=== PATIENT | female | born 1955 | race Caucasian/White ===

== ENCOUNTER 2022-08-31 09:35 | Inpatient (IN) | payer MEDICARE, SELFPAY ==
[2022-08-31] VITALS (13 sets, daily range): BP systolic 88–116; BP diastolic 65–92; PULSE 73–103; RESP 16–20; TEMP 36.4–36.6; O2SAT 93–98; BMI 47.9; BMI 38.0
--- NOTE | 2022-08-31 09:46 | ECG_ITS ---
[facility] Test Date: 2022-08-31 Pat Name: PRICILA GURROLA Department: Room: - Gender: Female Gum Cook: : 1955 Requested By: ELIANA BEJARANO Order Number: [id number] Reading MD: ABDIRAHMAN MARTINEZ Measurements Intervals [place] Rate: 97 P: 9 IL: 200 QRS: 132 QRSD: 88 T: 8 QT: 348 QTc: 402 Interpretive Statements 1100 Sinus rhythm 5120 Possible right ventricular hypertrophy 9130 borderline ECG No previous ECG available for comparison Electronically Signed On 09-02-2022 6:35:31 EDT by ABDIRAHMAN MARTINEZ
--- NOTE | 2022-08-31 09:46 | XR_ITS ---
[address] [address] Patient Name: PRICILA GURROLA MRN: [id number] date: 1955 Sex: F Assigned Patient Location: ER Current Patient Location: ED.MAIN Accession/Order Number: [id number] Exam Date: 08/31/2022 10:15 Report Date: 08/31/2022 11:13 At the request of: KATIE YOO Procedure: XR chest 1V EXAM: XR chest 1V INDICATION: chest pain. COMPARISON: Chest radiograph 01/09/2022 TECHNIQUE: Single frontal view of the chest FINDINGS: Stable enlargement of the cardiac silhouette. No acute infiltrative process. No pleural effusion or pneumothorax. No acute osseous abnormality. XR/XR chest 1V IMPRESSION: No acute cardiopulmonary process. Electronically authenticated by: CARRIE POSEY Date: 08/31/2022 11:13
[2022-08-31 10:15] LABS: Basophils Percent Auto 0.7 % (0.2-2.0); Eosinophils Percent Auto 0.5 % (0.9-7.0); Hematocrit 45.7 % (36.0-48.0); Hemoglobin 14.7 g/dL (12.0-16.0); Immature Granulocytes Abs Auto 0.02 10^3/uL (0.00-0.03); Immature Granulocytes Pct Auto 0.4 % (0.0-0.5); Lymphocytes Absolute Auto 0.7 10^3/uL (1.2-3.8); Lymphocytes Percent Auto 12.7 % (20.5-60.0); Mean Corpuscular HGB Conc 32.2 g/dL (29.9-35.2); Mean Corpuscular Hemoglobin 26.1 pg (26.7-34.0); Mean Corpuscular Volume 81.2 fL (81.0-99.0); Mean Platelet Volume 11.3 fL (9.5-13.5); Monocytes Absolute Auto 0.6 10^3/uL (0.3-0.8); Monocytes Percent Auto 10.4 % (1.7-12.0); Neutrophils Absolute Auto 4.2 10^3/uL (1.4-6.5); Neutrophils Percent Auto 75.3 % (43.0-75.0); Platelet Count 216 10^3/uL (150-450); Red Blood Count 5.63 10^6/uL (4.20-5.40); Red Cell Distribution Width 21.7 % (11.0-15.0); White Blood Count 5.6 10^3/uL (4.0-11.0)
--- NOTE | 2022-08-31 10:19 | PC.NURSE ---
started by EMS
[2022-08-31 10:30] LABS: INR 1.26; Partial Thromboplastin Time 28.4 sec (22.3-36.2); Prothrombin Time 13.2 sec (9.0-11.6)
[2022-08-31 10:35] LABS: Lactate/Lactic Acid 2.3 mmol/L (0.4-2.0)
[2022-08-31 10:38] LABS: Alanine Aminotransferase 26 U/L (14-59); Albumin Globulin Ratio 0.8; Albumin Level 2.9 g/dL (3.4-5.0); Alkaline Phosphatase 83 U/L (46-116); Anion Gap 12.1; Aspartate Amino Transferase 44 U/L (15-37); BUN Creatinine Ratio 13.3; Calcium 8.1 mg/dL (8.5-10.1); Carbon Dioxide 29.8 mmol/L (21.0-32.0); Chloride 102 mmol/L (98-107); Estimated GFR (African America >60 (>=60); Estimated GFR (Non-African Ame 52 (>=60); Globulin 3.7 g/dL; Glucose 104 mg/dL (74-106); Sodium 141 mmol/L (136-145); Total Protein 6.6 g/dL (6.4-8.2); Troponin I High Sensitivity 31.8 pg/mL (4.0-51.3)
[2022-08-31 10:50] LABS: Potassium 2.9 mmol/L (3.5-5.1)
[2022-08-31] MEDS: POTASSIUM BICARBONATE/CIT 25 MEQ TABLET EFF 50 MEQ PO (11:30)
[2022-08-31] MEDS: POTASSIUM CHLORIDE IN 0.9%NACL 1,000 ML 250 MEQ IV (11:31)
--- NOTE | 2022-08-31 12:06 | ED_ITS ---
HPI - General Adult General Chief complaint: Weakness Stated complaint: WEAKNESS Time Seen by Provider: 08/31/22 11:19 Limitations: no limitations History of Present Illness HPI narrative: Patient is a 67-year-old female who is presenting to the Emergency Room from home secondary to generalized weakness. Patient was a home by herself. Patient was in the shower this morning, sitting on a shower chair. Patient cannot get herself off the shower Chair secondary to weakness. Patient has no headache. No chest pain or shortness of breath. Patient is morbidly obese. Patient states she been having more swelling in her lower extremities for the past 2 months. Rosie ent is not eating and drinking as much as she normally does home. Patient's daughter and son at bedside. Patient's daughter is at bedside as a good source of history. Patient has not been eating or drinking as much. Patient has no nausea, vomiting, diarrhea, is not complaining of any urinary complaints. I asked patient if she is depressed or losing the will to live, because she is becoming so deconditioned at home. Patient adamantly states that she's not depressed, she is not suicidal, she is frustrated because the weakness is progressing. Patient has not talked to Dr. Frankel in the past 1-2 months about this progressing weakness. Patient says that she cannot get to his office because she so we, she knows that she can do teleconference doctor's appointments and she has not done that. There has been physical therapy and occupational therapy coming to the home, but the participation from the patient is not been good, Per daughter, and that therapy is not helping and she is progressively getting more weak. . All systems are negative except as noted/marked. All systems reviewed and otherwise negative. . Nurses note and vital signs reviewed and patient is not hypoxic. General: The patient appears well and in no apparent distress. Patient is resting comfortably on cart. Patient is not toxic, lethargic, or listless Skin: Warm, dry, no pallor noted. There is no rash noted. No petechiae, purpura. Head: Normocephalic, atraumatic Eye: Normal conjunctiva, no drainage, EOMI. PERRL Ears, Nose, Mouth, and Throat: oral mucosa is moist. Nares patent. Mouth without vesicles. Cardiovascular: Regular Rate and Rhythm, no murmur, gallop, rub Respiratory: Patient is in no distress, no accessory muscle use, lungs are clear to auscultation, no wheezing, rales or rhonchi Back: non-tender, no CVA tenderness bilaterally to percussion. No CT LS midline pain GI: soft, morbidly obese, no tenderness to palpation, no masses appreciated. No rebound, guarding, or rigidity noted. No flank pain bilateral, No distention Musculoskeletal: Patient has full range of motion of all of the extremities, no motor, sensory, or focal neurological deficits Neurological: A&O x3, normal speech Psychiatric: Cooperative Related Data Home Medications Medication Instructions Recorded Confirmed albuterol sulfate 2.5 mg/3 mL mg 08/31/22 (0.083 %) solution for nebulization aspirin 81 mg capsule 81 mg PO DAILY 08/31/22 08/31/22 carvedilol 12.5 mg tablet 12.5 mg PO Q12H 08/31/22 08/31/22 clopidogrel 75 mg tablet 75 mg PO QDAY 08/31/22 08/31/22 hydroxychloroquine 200 mg tablet 200 mg PO QDAY 08/31/22 08/31/22 isosorbide mononitrate 30 mg 30 mg PO QDAY 08/31/22 08/31/22 tablet,extended release 24 hr srbqoung-oek-urjqxp-choline-bioflavonoids tab PO 08/31/22 111 mg-111 mg-100 mg tablet pantoprazole 40 mg tablet,delayed mg PO 08/31/22 release simvastatin 20 mg tablet 20 mg PO QDAY 08/31/22 08/31/22 Allergies Allergy/AdvReac Type Severity Reaction Status Date / Time No Known Drug Allergies Allergy Verified 08/31/22 09:42 [facility] Medical History (Updated 08/31/22 @ 13:57 by Fatimah Morocho) Surgical History (Updated 08/31/22 @ 12:23 by Marbin Mazariegos) Exam Constitutional Vital Signs, click to edit/add: Last Vital Signs Temp 97.8 F 08/31/22 09:42 Pulse 73 08/31/22 14:22 Resp 16 08/31/22 11:02 BP 109/82 H 08/31/22 11:02 Pulse Ox 98 08/31/22 11:02 O2 Del Method Room Air 08/31/22 09:42 O2 Flow Rate 1 08/31/22 11:02 Course Vital Signs Vital signs: Vital Signs Temperature 97.8 F 08/31/22 09:42 Pulse Rate 97 H 08/31/22 09:42 Respiratory Rate 18 08/31/22 09:42 Blood Pressure 116/92 H 08/31/22 09:42 Pulse Oximetry 95 08/31/22 09:42 Oxygen Delivery Method Room Air 08/31/22 09:42 Temperature 97.8 F 08/31/22 09:42 Pulse Rate 73 08/31/22 14:22 Respiratory Rate 16 08/31/22 11:02 Blood Pressure 109/82 H 08/31/22 11:02 Pulse Oximetry 98 08/31/22 11:02 Oxygen Delivery Method Room Air 08/31/22 09:42 Oxygen Delivery Flow Rate 1 08/31/22 11:02 Medical Decision Making MDM Narrative Medical decision making narrative: Patient's potassium is 2.9. This was replaced with oral and IV. Patient's lactic acid was elevated, patient did have 1 L of IV fluid. Patient chest x-ray shows mild pulmonary congestion, the natural peptide is 10,000. Patient's been having progressing peripheral edema to lower extremities for the past 2 or 3 months. Patient is not able to keep care of herself at home. Patient was a home by herself. She does have a cane or walker. Patient sits around or lays around all day long, has no strength to get up and move around. Patient is becoming very deconditioned. Patient is very adamant that she is not depressed or suicidal. Patient will be admitted for further observation, following up potassium levels, and a therapy most likely rehabilitation placement. Daughter and son at bedside. Patient agrees she needs to be admitted for additional help. Daughter is very thankful she is being admitted. After patient drank the potassium, she had heartburn and midepigastric discomfort. Patient was given Zofran, Pepcid and gastrointestinal cocktail for that. Lab Data Lab results reviewed: Yes I reviewed the patient's lab results Labs: Lab Results 08/31/22 08/31/22 Range/Units 09:50 13:17 WBC 5.6 (4.0-11.0) 10^3/uL RBC 5.63 H (4.20-5.40) 10^6/uL Hgb 14.7 (12.0-16.0) g/dL Hct 45.7 (36.0-48.0) % MCV 81.2 (81.0-99.0) fL MCH 26.1 L (26.7-34.0) pg MCHC 32.2 (29.9-35.2) g/dL RDW 21.7 H (11.0-15.0) % Plt Count 216 (150-450) 10^3/uL MPV 11.3 (9.5-13.5) fL Neut % (Auto) 75.3 H (43.0-75.0) % Lymph % (Auto) 12.7 L (20.5-60.0) % [place] % (Auto) 10.4 (1.7-12.0) % Eos % (Auto) 0.5 L (0.9-7.0) % Baso % (Auto) 0.7 (0.2-2.0) % Neut # (Auto) 4.2 (1.4-6.5) 10^3/uL Lymph # (Auto) 0.7 L (1.2-3.8) 10^3/uL [place] # (Auto) 0.6 (0.3-0.8) 10^3/uL Eos # (Auto) 0.0 (0.0-0.7) 10^3/uL Baso # (Auto) 0.0 (0.0-0.1) 10^3/uL Abs Immat Gran (auto) 0.02 (0.00-0.03) 10^3/uL Imm/Tot Granulo (auto) 0.4 (0.0-0.5) % PT 13.2 H (9.0-11.6) sec INR 1.26 APTT 28.4 (22.3-36.2) sec Sodium 141 142 (136-145) mmol/L Potassium 2.9 L* 3.7 (3.5-5.1) mmol/L Chloride 102 104 (98-107) mmol/L Carbon Dioxide 29.8 30.2 (21.0-32.0) mmol/L Anion Gap 12.1 11.5 BUN 14.0 15.0 (7.0-18.0) mg/dL Creatinine 1.05 H 0.97 (0.55-1.02) mg/dL Est GFR ( Amer) >60 >60 (>=60) Est GFR (Non-Af Amer) 52 L 57 L (>=60) BUN/Creatinine Ratio 13.3 15.5 Glucose 104 96 (74-106) mg/dL Lactate 2.3 H* (0.4-2.0) mmol/L Calcium 8.1 L 8.1 L (8.5-10.1) mg/dL Total Bilirubin 1.0 (0.2-1.0) mg/dL AST 44 H (15-37) U/L ALT 26 (14-59) U/L Alkaline Phosphatase 83 (46-116) U/L Troponin I High Sens 31.8 (4.0-51.3) pg/mL NT-Pro-B Natriuret Pep 29351.0 H* (<=900.0) pg/mL Total Protein 6.6 (6.4-8.2) g/dL Albumin 2.9 L (3.4-5.0) g/dL Globulin 3.7 g/dL Albumin/Globulin Ratio 0.8 Patient's lactic acid is elevated, patient initially received 1 L of IV fluids that was initiated by EMS and was finished for lab work came back. Patient's potassium is 2.9. She is using oral and IV potassium. ECG Data Attestation: I personally reviewed and interpreted this ECG as follows: Interpretation: EKG interpretation. Normal sinus rhythm at 97 beats a minute. Normal axis deviation. No acute ST elevation, no acute ectopy. QTC of 402. Discharge Plan Discharge Chief Complaint: Weakness Clinical Impression: Weakness, Edema, peripheral, Inability to walk, Acute hypokalemia Patient Disposition: Admitted as Observation Condition: Fair
[2022-08-31] MEDS: ONDANSETRON 4 MG RAPDIS TABLET SL (12:23)
[2022-08-31] MEDS: FAMOTIDINE/PF 20 MG/2 ML VIAL IV (12:23)
[2022-08-31 13:50] LABS: Anion Gap 11.5; BUN Creatinine Ratio 15.5; Calcium 8.1 mg/dL (8.5-10.1); Carbon Dioxide 30.2 mmol/L (21.0-32.0); Chloride 104 mmol/L (98-107); Estimated GFR (African America >60 (>=60); Estimated GFR (Non-African Ame 57 (>=60); Glucose 96 mg/dL (74-106); Potassium 3.7 mmol/L (3.5-5.1); Sodium 142 mmol/L (136-145)
[2022-08-31] MEDS: FUROSEMIDE 40 MG/4 ML VIAL (16:14)
[2022-08-31] MEDS: POTASSIUM CHLORIDE 10 MEQ ER TABLET 40 MEQ PO (16:15)
[2022-08-31 20:32] LABS: Anion Gap 11.9; Calcium 7.4 mg/dL (8.5-10.1); Carbon Dioxide 30.6 mmol/L (21.0-32.0); Chloride 105 mmol/L (98-107); Estimated GFR (African America >60 (>=60); Estimated GFR (Non-African Ame 50 (>=60); Glucose 92 mg/dL (74-106); Potassium 4.5 mmol/L (3.5-5.1); Sodium 143 mmol/L (136-145)
[2022-08-31] MEDS: ATORVASTATIN CALCIUM 10 MG TABLET PO (21:12)
[2022-08-31] MEDS: ENOXAPARIN SODIUM 40 MG/0.4 ML SYRINGE SUBQ (21:12)
[2022-08-31] MEDS: CARVEDILOL 12.5 MG TABLET PO (21:12)
[2022-09-01] VITALS (23 sets, daily range): BP systolic 85–103; BP diastolic 52–73; PULSE 75–100; RESP 16–20; TEMP 36.3–36.6; O2SAT 88–96
[2022-09-01 04:52] LABS: Basophils Percent Auto 0.9 % (0.2-2.0); Eosinophils Percent Auto 0.7 % (0.9-7.0); Hematocrit 45.8 % (36.0-48.0); Hemoglobin 14.1 g/dL (12.0-16.0); Immature Granulocytes Abs Auto 0.02 10^3/uL (0.00-0.03); Immature Granulocytes Pct Auto 0.5 % (0.0-0.5); Lymphocytes Absolute Auto 0.5 10^3/uL (1.2-3.8); Lymphocytes Percent Auto 12.2 % (20.5-60.0); Mean Corpuscular HGB Conc 30.8 g/dL (29.9-35.2); Mean Corpuscular Hemoglobin 25.6 pg (26.7-34.0); Mean Corpuscular Volume 83.3 fL (81.0-99.0); Monocytes Absolute Auto 0.6 10^3/uL (0.3-0.8); Monocytes Percent Auto 12.4 % (1.7-12.0); Neutrophils Absolute Auto 3.2 10^3/uL (1.4-6.5); Neutrophils Percent Auto 73.3 % (43.0-75.0); Platelet Count 157 10^3/uL (150-450); Red Cell Distribution Width 21.8 % (11.0-15.0); White Blood Count 4.4 10^3/uL (4.0-11.0)
[2022-09-01 05:25] LABS: Alanine Aminotransferase 24 U/L (14-59); Albumin Globulin Ratio 0.8; Albumin Level 2.7 g/dL (3.4-5.0); Alkaline Phosphatase 71 U/L (46-116); Aspartate Amino Transferase 39 U/L (15-37); BUN Creatinine Ratio 12.9; Bilirubin Total 0.8 mg/dL (0.2-1.0); Calcium 7.6 mg/dL (8.5-10.1); Carbon Dioxide 28.4 mmol/L (21.0-32.0); Chloride 103 mmol/L (98-107); Estimated GFR (African America 56 (>=60); Estimated GFR (Non-African Ame 46 (>=60); Globulin 3.3 g/dL; Glucose 93 mg/dL (74-106); Potassium 4.4 mmol/L (3.5-5.1); Sodium 141 mmol/L (136-145)
[2022-09-01] MEDS: ISOSORBIDE MONONITRATE 30 MG TAB.ER.24H PO (08:09)
[2022-09-01] MEDS: CLOPIDOGREL BISULFATE 75 MG TABLET PO (08:09)
[2022-09-01] MEDS: HYDROXYCHLOROQUINE SULFATE 200 MG TABLET PO (08:09)
[2022-09-01] MEDS: ASPIRIN 81 MG TAB.CHEW PO (08:09)
[2022-09-01] MEDS: CARVEDILOL 12.5 MG TABLET PO (08:09)
--- NOTE | 2022-09-01 09:04 | CA_ITS ---
Patient: PRICILA GURROLA Exam Date: 09/02/2022 : 1955 Gender:F Ordering : DR ABDIRAHMAN MARTINEZ . Admission #: [id number] Family : DR ANIA NEVILLE M.D. Order #: [id number] CLICK HERE TO VIEW EXAM ECHOCARDIOGRAM REPORT PROCEDURE: CA ECHO DOPPLER COMPLETE INDICATIONS: Dyspnea, edema, CHF, COPD, CAD, hypertension COMPARISON: None. DESCRIPTION: COMPLETE ECHOCARDIOGRAM Real-time transthoracic echocardiography with 2D, M-mode, spectral and color flow Doppler performed. QUALITY: Technical quality was good. LEFT VENTRICLE: Small chamber size. Abnormal septal motion due to RV pressure or volume overload. Normal systolic function. LV EF: Normal left ventricular ejection fraction, (55%). DIASTOLIC: ATRIAL SEPTUM: LEFT ATRIUM: Normal chamber size. RIGHT ATRIUM: Severe dilatation. RIGHT VENTRICLE: Severe dilatation. Moderately to severely decreased right ventricular systolic function. TRICUSPID VALVE: Normal mobility and thickness. No stenosis with moderate regurgitation. Doppler studies reveal severely (>60) elevated right sided pressures. RVSP 98 mmHg MITRAL VALVE: Mildly thickened with normal mobility. No evidence of mitral valve stenosis. There is no mitral annular calcification. Mild mitral regurgitation. AORTIC VALVE: Normal trileaflet appearance. Mildly calcified aortic valve. Mildly diminished mobility. No evidence of aortic valve stenosis. DVI 0.5. No aortic regurgitation. AORTIC ROOT: Normal diameter and appearance. PULMONIC VALVE: Normal thickness and mobility. No stenosis. Mild regurgitation. PERICARDIUM: Moderate posterior pericardial effusion (2.6 cm). IVC: IVC is dilated (2.4 cm) with no collapse. PLEURA: CONCLUSION: 1. Left ventricular systolic function is normal. LVEF is 55%. 2. Severely dilated right ventricle with moderately to severely reduced systolic function. 3. Severe right atrial dilatation. 4. Moderate tricuspid regurgitation. 5. Severely elevated right-sided pressures. RVSP is 98 mmHg. Adult Echocardiography Procedure Report Left Ventricle LVEDD (3.7 - 5.6 cm): 2.80 cm LVESD (2.2 - 4.0 cm): 2.42 cm LVIVS thickness (0.6 - 1.2 cm): 1.58 cm LVPW thickness (0.5 - 1.0 cm): 1.10 cm LVOT Max Gradient: 1 mm[Hg] Peak Velocity (LVOT): 46.40 cm/s LVOT Diameter 1.50 cm Left Ventricular Ejection Fraction: 55 % Left Atrium LA Volume Index (2D A2C): 30981 mm3 Left Atrium Systolic Dimension: 2.80 cm Mitral Valve MV E to A Ratio: 0.90 Mitral Valve A-Wave Peak Velocity: 50.30 cm/s Mitral Valve E-Wave Peak Velocity: 43.40 cm/s Right Ventricle Aorta AO Root Diam: 3.30 cm Aortic Valve AoV Area (Peak Po): 0.89 cm2 Peak Velocity(Antegrade Flow): 92.10 cm/s Peak Gradient(Antegrade Flow): 3 mm[Hg] Tricuspid Valve Peak Velocity (Regurgitant Flow): 455.00 cm/s Peak Velocity: 58.20 cm/s Pulmonic Valve Peak Velocity: 59.10 cm/s, 63.40 cm/s Peak Gradient: 2 mm[Hg] Right Atrium Dictated by: Vern Willett M.D. on 09/03/2022 at 19:33 Approved by: Vern Willett M.D. on 09/03/2022 at 19:38
--- NOTE | 2022-09-01 10:02 | P.HP_ITS ---
H&P: HPI History of Present Illness Chief complaint: WEAKNESS, EDEMA, PERIPHERAL INABILITY TO WALK Narrative: Patient feeling well since earlier in the year. Having increasing weakness. Over the last couple weeks is a worsening of this condition. Peripheral edema, shortness of breath, presented to the emergency room and found to have acute combined congestive heart failure. Patient mated for work-up of same Review of Systems ROS Constitutional Denies: fever or chills Eyes Denies: change in vision Ears, nose, mouth, and throat Denies: throat pain Cardiovascular Reports: edema and swelling of feet/ankles; Denies: chest pain Respiratory Reports: shortness of breath and cough Gastrointestinal Denies: abdominal pain, nausea or vomiting Genitourinary Denies: painful urination Musculoskeletal Reports: back pain PFSH PFS Medical History (Updated 08/31/22 @ 16:08 by Raisa Tenorio) Surgical History (Updated 08/31/22 @ 12:23 by Marbin Mazariegos) Family History (Updated 08/31/22 @ 15:48 by Raisa Tenorio) Father Family history of CHF (congestive heart failure) Mother Family history of hypertension Other Family history of COPD (chronic obstructive pulmonary disease) Family history of diabetes mellitus Family history of myocardial infarction Social History (Updated 08/31/22 @ 15:51 by Raisa Tenorio) Within the past year, how often did you have a drink containing alcohol: never Score interpretation: A score less than 3 is consistent with normal alcohol consumption. Smoking status: Never smoker Non-prescribed substance use: denies use Previous occupational history: retired Highest level of school completed/degree received: high school graduate Are you now , , , , never or living with a partner: In a typical week, how many times do you talk on the telephone with family, friends, or neighbors: 3 or more times per week How often do you get together with friends or relatives: 3 or more times per week How often do you attend rastafarian or restoration services: 4 or more times per year Do you belong to any clubs or organizations such as rastafarian groups unions, fraternal or athletic groups, or school groups: no Total score: 2 Score interpretation: A score of greater than or equal to 2 indicates the lowest level of social isolation. Little interest or pleasure in doing things: not at all Feeling down, depressed, or hopeless: not at all Feel stressed/tense/nervous/anxious/difficulty sleeping: not at all Due to disability, difficulty making decisions: No Do you think of yourself as: straight/heterosexual Meds Home Medications and Allergies Home Medications Medication Instructions Recorded Confirmed Type albuterol sulfate 2.5 mg/3 mL mg 08/31/22 History (0.083 %) solution for nebulization aspirin 81 mg capsule 81 mg PO DAILY 08/31/22 08/31/22 History carvedilol 12.5 mg tablet 12.5 mg PO Q12H 08/31/22 08/31/22 History clopidogrel 75 mg tablet 75 mg PO QDAY 08/31/22 08/31/22 History hydroxychloroquine 200 mg tablet 200 mg PO QDAY 08/31/22 08/31/22 History isosorbide mononitrate 30 mg 30 mg PO QDAY 08/31/22 08/31/22 History tablet,extended release 24 hr gkvtozwf-equ-lxcdrh-choline-bioflavonoids tab PO 08/31/22 History 111 mg-111 mg-100 mg tablet pantoprazole 40 mg tablet,delayed mg PO 08/31/22 History release simvastatin 20 mg tablet 20 mg PO QDAY 08/31/22 08/31/22 History Allergies Allergy/AdvReac Type Severity Reaction Status Date / Time No Known Drug Allergies Allergy Verified 08/31/22 09:42 Exam Constitutional Vital Signs, click to edit/add: Last Vital Signs Temp 97.4 F L 09/01/22 04:38 Pulse 90 09/01/22 08:09 Resp 20 09/01/22 04:38 BP 92/60 09/01/22 05:47 Pulse Ox 96 09/01/22 05:23 O2 Del Method Nasal Cannula 09/01/22 05:23 O2 Flow Rate 1.5 09/01/22 05:23 Documenting provider has reviewed patient's vital signs: yes Common normals: apparent distress Exam limitations: no altered mental status Chest Common normals: inspection of chest normal Respiratory Common normals: abnormal respiratory effort and not clear to ascultation bilaterally Effort & inspection: tachypneic Auscultation: rales Cardio Common normals: regular rate, regular rhythm and no murmurs GI Common normals: Normal to inspection, nondistended, normoactive bowel sounds present Extremity Common normals: abnormal to inspection (3+ peripheral edema) Results Labs Labs: Short CBC 08/31/22 09/01/22 Range/Units 09:50 04:15 WBC 5.6 4.4 (4.0-11.0) 10^3/uL Hgb 14.7 14.1 (12.0-16.0) g/dL Hct 45.7 45.8 (36.0-48.0) % Plt Count 216 157 (150-450) 10^3/uL BMP 08/31/22 08/31/22 08/31/22 09:50 13:17 20:12 Sodium 141 142 143 Potassium 2.9 L* 3.7 4.5 Chloride 102 104 105 Carbon Dioxide 29.8 30.2 30.6 BUN 14.0 15.0 14.0 Creatinine 1.05 H 0.97 1.08 H Glucose 104 96 92 Calcium 8.1 L 8.1 L 7.4 L 09/01/22 04:15 Sodium 141 Potassium 4.4 Chloride 103 Carbon Dioxide 28.4 BUN 15.0 Creatinine 1.16 H Glucose 93 Calcium 7.6 L Liver Function 08/31/22 09/01/22 Range/Units 09:50 04:15 Total Bilirubin 1.0 0.8 (0.2-1.0) mg/dL AST 44 H 39 H (15-37) U/L ALT 26 24 (14-59) U/L Alkaline Phosphatase 83 71 (46-116) U/L Albumin 2.9 L 2.7 L (3.4-5.0) g/dL Assessment and Plan Assessment and Plan (1) Weakness: (2) Edema, peripheral: (3) Inability to walk: (4) Acute hypokalemia: (5) Congestive heart failure: (6) COPD (chronic obstructive pulmonary disease): (7) Hypertension: (8) Hx of coronary artery disease: Plan Sign this tachycardia, hypotension, hypokalemia, with a positive lactate and significantly elevated BNP likely to acute combined congestive heart failure-we will check urinalysis and thyroid to find a cause. Bumex drip today. Echocardiogram tomorrow. Consultation to cardiology tomorrow. History of hypertension-currently hypotensive-Monitor closely, may need adjustment medications History of coronary artery disease-this is likely complicating the above.Echocardiogram tomorrow. Severe generalized weakness-this is likely secondary to the above.May need rehab. Hypokalemia-treated and is improved today. History of COPD-does have slight cough with sputum production we will try to obtain sampleLungs without wheeze Positive lactate-look for source of infection, sputum culture and urine analysis Likely sleep apnea-. Patient uses supplemental oxygen but only at at bedtime
[2022-09-01 10:16] LABS: Lactate/Lactic Acid 1.2 mmol/L (0.4-2.0)
[2022-09-01 10:23] LABS: Free T3 1.43 pg/mL (2.18-3.98); Magnesium 1.3 mg/dL (1.8-2.4); Thyroid Stimulating Hormone 5.061 uIU/mL (0.358-3.740); Troponin I High Sensitivity 24.4 pg/mL (4.0-51.3)
[2022-09-01] MEDS: BUMETANIDE 10 MG in 0.9 % SODIUM CHLORIDE 160 ML 20 MG IV (14:18)
[2022-09-01 19:29] LABS: Bilirubin Urine NEGATIVE (NEGATIVE); Blood Urine MODERATE (NEGATIVE); Clarity Urine CLEAR (CLEAR); Color Urine LT. YELLOW (YELLOW); Glucose Urine UA NEGATIVE (NEGATIVE); Ketones Urine NEGATIVE (NEGATIVE); Leukocyte Esterase Urine LARGE (NEGATIVE); Nitrite Urine POSITIVE (NEGATIVE); Protein Urine NEGATIVE (NEG/TRACE)
--- NOTE | 2022-09-01 19:35 | RESP.RT ---
No PRN breathing tx given. Pt denies need. No respiratory distress noted.
--- NOTE | 2022-09-01 19:35 | RESP.RT ---
Pt found on ROOM AIR and Sp02 was 88%, Placed pt back on 02 at 2L nasal cannula. Sp02 increased to 92%. Pt wears 02 at home.
[2022-09-01 19:39] LABS: WBC Urine 75-100 #/HPF (NONE SEEN)
[2022-09-01 19:40] LABS: Bacteria Urine LARGE #/HPF (NONE SEEN); Cast Seen? NONE SEEN #/LPF (NONE SEEN); Crystals Seen? None Seen #/HPF (None Seen); Mucus Urine NONE SEEN (NONE SEEN); Squamous Epithelial Cell Urine RARE #/LPF (NONE/RARE); Urine Culture Indicated ALREADY ORDERED
[2022-09-01 19:41] LABS: Amphetamine Screen Urine NEGATIVE (NEGATIVE); Barbiturates Screen Urine NEGATIVE (NEGATIVE); Benzodiazepines Screen Urine NEGATIVE (NEGATIVE); Buprenorphine Screen Urine NEGATIVE (NEGATIVE); Cannabinoid Screen Urine NEGATIVE (NEGATIVE); Cocaine Screen Urine NEGATIVE (NEGATIVE); Methadone Screen Urine NEGATIVE (NEGATIVE); Methamphetamines Screen Urine NEGATIVE (NEGATIVE); Opiate Screen Urine NEGATIVE (NEGATIVE); Oxycodone Screen Urine NEGATIVE (NEGATIVE); Phencyclidine Screen Urine NEGATIVE (NEGATIVE); Tricyclic Antidepressant Urine NEGATIVE (NEGATIVE)
[2022-09-01] MEDS: ENOXAPARIN SODIUM 40 MG/0.4 ML SYRINGE SUBQ (20:24)
[2022-09-01] MEDS: ATORVASTATIN CALCIUM 10 MG TABLET PO (20:25)
[2022-09-01] MEDS: POTASSIUM CHLORIDE 10 MEQ ER TABLET PO (20:25)
[2022-09-01] MEDS: CEFTRIAXONE 1,000 MG in 0.9 % SODIUM CHLORIDE 50 ML 100 MG IV (22:00)
[2022-09-02] VITALS (17 sets, daily range): BP systolic 93–102; BP diastolic 54–76; PULSE 84–112; RESP 18–20; TEMP 36.4–36.5; O2SAT 77–98; BMI 38.0
[2022-09-02 04:38] LABS: Basophils Absolute Auto 0.1 10^3/uL (0.0-0.1); Eosinophils Percent Auto 0.6 % (0.9-7.0); Hemoglobin 13.8 g/dL (12.0-16.0); Immature Granulocytes Abs Auto 0.02 10^3/uL (0.00-0.03); Immature Granulocytes Pct Auto 0.4 % (0.0-0.5); Lymphocytes Absolute Auto 0.7 10^3/uL (1.2-3.8); Lymphocytes Percent Auto 13.3 % (20.5-60.0); Mean Corpuscular HGB Conc 30.7 g/dL (29.9-35.2); Mean Corpuscular Hemoglobin 25.7 pg (26.7-34.0); Mean Platelet Volume 10.9 fL (9.5-13.5); Monocytes Absolute Auto 0.7 10^3/uL (0.3-0.8); Monocytes Percent Auto 13.3 % (1.7-12.0); Neutrophils Absolute Auto 3.8 10^3/uL (1.4-6.5); Neutrophils Percent Auto 71.4 % (43.0-75.0); Platelet Count 162 10^3/uL (150-450); Red Blood Count 5.36 10^6/uL (4.20-5.40); Red Cell Distribution Width 21.9 % (11.0-15.0); White Blood Count 5.3 10^3/uL (4.0-11.0)
[2022-09-02 05:07] LABS: Anion Gap 11.4; BUN Creatinine Ratio 12.3; Calcium 7.7 mg/dL (8.5-10.1); Carbon Dioxide 30.2 mmol/L (21.0-32.0); Chloride 104 mmol/L (98-107); Estimated GFR (African America 53 (>=60); Estimated GFR (Non-African Ame 44 (>=60); Glucose 108 mg/dL (74-106); Potassium 3.6 mmol/L (3.5-5.1); Sodium 142 mmol/L (136-145)
--- NOTE | 2022-09-02 07:38 | XR_ITS ---
The [address] [address] Patient Name: PRICILA GURROLA MRN: [id number] date: 1955 Sex: F Assigned Patient Location: [place] Current Patient Location: Accession/Order Number: [id number] Exam Date: 09/02/2022 09:31 Report Date: 09/02/2022 09:45 At the request of: ABDIRAHMAN MARTINEZ Procedure: XR chest 1V EXAMINATION: XR chest 1V HISTORY: morin ; shortness of breath COMPARISON: XR chest 08/31/2022 FINDINGS: LUNGS: No significant pulmonary parenchymal abnormalities. VASCULATURE: No increased pulmonary vasculature. PLEURA: No pneumothorax, effusion, or pleural thickening. CARDIAC: Stable cardiomegaly. MEDIASTINUM: No visible mass or adenopathy. BONES: Old healed right rib fracture. OTHER: Negative. XR/XR chest 1V IMPRESSION: 1. No acute cardiopulmonary process. Stable chest. Electronically authenticated by: LES AUGUSTE Date: 09/02/2022 09:45
--- NOTE | 2022-09-02 07:43 | RESP.RT ---
Placed on room air
--- NOTE | 2022-09-02 07:50 | P.PN_ITS ---
Progress Note: Subjective Subjective Interval history: Patient still with significant weakness this morning, not been ambulatory enough to know if shortness of breath is better Exam Constitutional Vital Signs, click to edit/add: Last Vital Signs Temp 97.7 F 09/02/22 03:52 Pulse 93 H 09/02/22 05:44 Resp 20 09/02/22 03:52 BP 102/76 09/02/22 03:52 Pulse Ox 98 09/02/22 07:43 O2 Del Method Nasal Cannula 09/02/22 07:43 O2 Flow Rate 1.5 09/02/22 07:43 Documenting provider has reviewed patient's vital signs: yes Common normals: apparent distress Exam limitations: no altered mental status Chest Common normals: inspection of chest normal Respiratory Common normals: abnormal respiratory effort and not clear to ascultation bilaterally Effort & inspection: tachypneic Auscultation: rales Cardio Common normals: regular rate, regular rhythm and no murmurs GI Common normals: Normal to inspection, nondistended, normoactive bowel sounds present Extremity Common normals: abnormal to inspection (3+ peripheral edema) Progress Note: Objective Labs Labs: Short CBC 09/02/22 Range/Units 04:06 WBC 5.3 (4.0-11.0) 10^3/uL Hgb 13.8 (12.0-16.0) g/dL Hct 45.0 (36.0-48.0) % Plt Count 162 (150-450) 10^3/uL BMP 09/02/22 04:06 Sodium 142 Potassium 3.6 Chloride 104 Carbon Dioxide 30.2 BUN 15.0 Creatinine 1.22 H Glucose 108 H Calcium 7.7 L Urine 09/01/22 Range/Units 18:58 Urine Color Lt. yellow (YELLOW) Urine Clarity Clear (CLEAR) Urine pH 5.0 (5.0-9.0) Ur Specific [place] 1.020 (1.005-1.025) Urine Protein Negative (NEG/TRACE) mg/dL Urine Glucose (UA) Negative (NEGATIVE) mg/dL Progress Note: A&P Assessment and Plan (1) Weakness: (2) Edema, peripheral: (3) Inability to walk: (4) Acute hypokalemia: (5) Congestive heart failure: (6) COPD (chronic obstructive pulmonary disease): (7) Hypertension: (8) Hx of coronary artery disease: Plan tachycardia, hypotension, hypokalemia, with a positive lactate and significantly elevated BNP likely to acute combined congestive heart failure- urinalysis positive for acute UTI, T3 low significant for hypothyroidism, echocardiogram today, cardiology consult today, no improvement in rales or peripheral edema, will try Lasix Aldactone combination History of hypertension-currently hypotensive- had to hold Coreg overnight History of coronary artery disease-this is likely complicating the above.Echocardiogram today s Severe generalized weakness-this is likely secondary to the above.May need rehab.-patient willing to do Hypokalemia-treated and is improved today.-resolved History of COPD-does have slight cough with sputum production we will try to obtain sampleLungs without wheeze-stable -hypoxia was worse overnight, will check chest x-ray Positive lactate-look for source of infection, sputum culture and urine analysis-likely UTI. cultures pending till tomorrow Likely sleep apnea-. Patient uses supplemental oxygen but only at hs Acute UTI-Add second antibiotic secondary to severity of her illness causing the above.Cultures will return until tomorrow.time. Hypothyroidism-add cytomel Constipation-add MiraLAX
[2022-09-02] MEDS: HYDROXYCHLOROQUINE SULFATE 200 MG TABLET PO (08:39)
[2022-09-02] MEDS: ISOSORBIDE MONONITRATE 30 MG TAB.ER.24H PO (08:39)
[2022-09-02] MEDS: ASPIRIN 81 MG TAB.CHEW PO (08:39)
[2022-09-02] MEDS: CLOPIDOGREL BISULFATE 75 MG TABLET PO (08:39)
[2022-09-02] MEDS: LIOTHYRONINE SODIUM 5 MCG TABLET PO (08:39)
[2022-09-02] MEDS: SPIRONOLACTONE 25 MG TABLET PO ×2 (08:39→20:51)
[2022-09-02] MEDS: POTASSIUM CHLORIDE 10 MEQ ER TABLET PO ×2 (08:39→20:51)
[2022-09-02] MEDS: CARVEDILOL 12.5 MG TABLET PO (08:39)
[2022-09-02] MEDS: FUROSEMIDE 40 MG/4 ML VIAL IVP ×2 (08:40→22:18)
[2022-09-02] MEDS: CIPROFLOXACIN IN 5 % DEXTROSE 400 MG/200 ML PIGGYBACK 200 MG IV ×2 (08:44→22:57)
[2022-09-02] MEDS: POLYETHYLENE GLYCOL 3350 17 GM POWDER PACKET PO (08:44)
--- NOTE | 2022-09-02 12:37 | SWNOTE1 ---
SW spoke with case management and pt does agree to go skilled and she would like the [facility]. SW sent referral to [facility]. Earliest dc 09/05/22.
--- NOTE | 2022-09-02 16:01 | SWNOTE1 ---
[facility] has accepted, earliest discharge is .
--- NOTE | 2022-09-02 16:23 | CM.NOTE ---
Important Message From Medicare discussed with pt, pt verbalizes understanding and signs paper. Original given to pt and copy placed on pt's chart.
[2022-09-02] MEDS: SENNOSIDES 8.6 MG TABLET PO (20:51)
[2022-09-02] MEDS: BISACODYL 10 MG RECTAL SUPPOSITORY PR (20:51)
[2022-09-02] MEDS: ALBUMIN HUMAN 25 GM/100 ML PREMIX IV (20:51)
[2022-09-02] MEDS: ATORVASTATIN CALCIUM 10 MG TABLET PO (20:51)
[2022-09-02] MEDS: ENOXAPARIN SODIUM 40 MG/0.4 ML SYRINGE SUBQ (20:52)
[2022-09-02 20:54] LABS: Hematocrit 44.8 % (36.0-48.0)
[2022-09-02 21:16] LABS: D Dimer 1.92 mg/L FEU (<=0.59)
--- NOTE | 2022-09-02 21:32 | CT_ITS ---
The [address] [address] Patient Name: PRICILA GURROLA MRN: [id number] date: 1955 Sex: F Assigned Patient Location: Current Patient Location: Accession/Order Number: [id number] Exam Date: 09/02/2022 21:50 Report Date: 09/02/2022 23:04 At the request of: LUZMA PEÑA Procedure: CT angio chest EXAM: CT angio chest TECHNIQUE: CT angiogram with contrast performed of the chest including multi planar reformatted images and maximum intensity projection images. Dose reduction techniques were achieved by using automated exposure control and/or adjustment of mA and/or kV according to patient size and/or use of iterative reconstruction technique. HISTORY: Rule out PE COMPARISON: None. FINDINGS: Neck and Axilla: No lower neck or axillary lymphadenopathy. Mediastinum and Kemi: No hilar or mediastinal lymphadenopathy. Heart and Major Vessels: Heart is enlarged. There is a small pericardial effusion. Relative dilatation of the right atrium and right ventricle. The aorta and central pulmonary arteries are unremarkable for size.Moderate amount of somewhat peripheral pulmonary arterial filling defect within right lower lobe pulmonary arteries. Small amount of peripheral pulmonary arterial filling defect within left lower lobe pulmonary arteries. Lung Julien: Patchy tree-in-bud opacities of both upper lobes, right greater than left. Mild patchy compressive atelectasis in the lower lobes, right greater than left. Pleural Spaces: Small bilateral pleural effusions. Upper Abdomen: No acute abnormality identified. Chest Wall: No acute abnormality. CT/CT angio chest IMPRESSION: Moderate amount of pulmonary embolism appears somewhat chronic and more significant in the right lower lobe. Findings right heart strain. This may be secondary to the pulmonary embolism and/or pericardial effusion. A critical result was communicated to Kenyatta at 09/02/2022 11:00 PM EDT by Alfa Lewis MD. Electronically authenticated by: ALFA LEWIS Date: 09/02/2022 23:04
--- NOTE | 2022-09-02 21:33 | W.PM.TELEPN ---
Progress Note: Subjective Subjective Interval history: Patient still with significant weakness this morning, not been ambulatory enough to know if shortness of breath is better Exam Constitutional Vital Signs, click to edit/add: Last Vital Signs Temp 97.6 F 09/02/22 19:59 Pulse 112 H 09/02/22 20:00 Resp 18 09/02/22 19:59 BP 93/73 09/02/22 19:59 Pulse Ox 98 09/02/22 19:59 O2 Del Method Nasal Cannula 09/02/22 19:59 O2 Flow Rate 1.5 09/02/22 07:43 Progress Note: Objective Labs Labs: Short CBC 09/02/22 09/02/22 Range/Units 04:06 20:49 WBC 5.3 (4.0-11.0) 10^3/uL Hgb 13.8 14.0 (12.0-16.0) g/dL Hct 45.0 44.8 (36.0-48.0) % Plt Count 162 (150-450) 10^3/uL BMP 09/02/22 04:06 Sodium 142 Potassium 3.6 Chloride 104 Carbon Dioxide 30.2 BUN 15.0 Creatinine 1.22 H Glucose 108 H Calcium 7.7 L Progress Note: A&P Assessment and Plan (1) Weakness: (2) Edema, peripheral: (3) Inability to walk: (4) Acute hypokalemia: (5) Congestive heart failure: (6) COPD (chronic obstructive pulmonary disease): (7) Hypertension: (8) Hx of coronary artery disease: Telemedicine Attestation Telemedicine Attestation I conducted this encounter from [] via secure live, [id number] video conference with the patient, located at [facility] with []. Prior to the interview, the risks and benefits of telemedicine were discussed with the patient and verbal consent was obtained.
--- NOTE | 2022-09-02 21:33 | PM.EN ---
Event Note Event Note: I was called by the patient's nurse because she was more hypoxic and appeared pale. She also complained of being lightheaded. I assessed the patient via the telecart and noted that she had some crackles on examination by the nurse. She also had significant edema. She has only put out 350ml of urine since her last dose of lasix. - d-dimer and H/H - give evening dose of lasix early - give albumin 25% 25g x1 Her D-dimer was predictably elevated so I reviewed her chart. Her creatinine is elevating but has gone from 0.9 to 1.22. I decided that it is still favorable to obtain a CTA chest.
[2022-09-02] MEDS: CEFTRIAXONE 1,000 MG in 0.9 % SODIUM CHLORIDE 50 ML 100 MG IV (22:18)
[2022-09-02 23:41] LABS: Basophils Absolute Auto 0.1 10^3/uL (0.0-0.1); Basophils Percent Auto 1.2 % (0.2-2.0); Eosinophils Percent Auto 0.8 % (0.9-7.0); Hematocrit 45.1 % (36.0-48.0); Hemoglobin 13.9 g/dL (12.0-16.0); Immature Granulocytes Abs Auto 0.05 10^3/uL (0.00-0.03); Lymphocytes Absolute Auto 0.7 10^3/uL (1.2-3.8); Lymphocytes Percent Auto 14.7 % (20.5-60.0); Mean Corpuscular HGB Conc 30.8 g/dL (29.9-35.2); Mean Corpuscular Hemoglobin 25.6 pg (26.7-34.0); Mean Corpuscular Volume 82.9 fL (81.0-99.0); Monocytes Absolute Auto 0.6 10^3/uL (0.3-0.8); Monocytes Percent Auto 11.9 % (1.7-12.0); Neutrophils Absolute Auto 3.5 10^3/uL (1.4-6.5); Neutrophils Percent Auto 70.4 % (43.0-75.0); Platelet Count 217 10^3/uL (150-450); Red Blood Count 5.44 10^6/uL (4.20-5.40); Red Cell Distribution Width 21.7 % (11.0-15.0)
[2022-09-02 23:50] LABS: INR 1.39; Prothrombin Time 14.5 sec (9.0-11.6)
[2022-09-02 23:52] LABS: Partial Thromboplastin Time 30.6 sec (22.3-36.2)
[2022-09-03] VITALS: PULSE 90; O2SAT 98
[2022-09-03 00:15] VITALS: BP 104/84; PULSE 95; RESP 18; TEMP 36.6; O2SAT 98
--- NOTE | 2022-09-03 00:27 | PC.NURSE ---
orders received to transfer patient to ICU. bedside report given to Raisa WOLFE. patient was transfered to ICU via bed, o2 at 2 liters. telemetry and continuous pulse ox. pt transfered via slide board to ICU bed. patient repositioned and jarrett care provided. Patient connected to ICU telemetry. patient was asked who should be notified of her transfer, patient states I will just text my family. All of patient's belongings transfered to ICU with her.
[2022-09-03] MEDS: HEPARIN SODIUM (PORCINE) 5,000 UNIT/ML VIAL 6100 UNIT IV (00:39)
[2022-09-03] MEDS: HEPARIN SODIUM,PORCINE/D5W 25,000 UNIT/500 ML IV.SOLN 27.36 UNIT IV (00:40)
--- NOTE | 2022-09-03 00:56 | PC.NURSE ---
2nd IV site started in the rt hand with a 22g cath for any further meds or blood draws. Great blood return noted.
[2022-09-03 03:47] VITALS: O2SAT 98
--- NOTE | 2022-09-03 08:01 | PM.DS1 ---
DS: Providers Provider Date of admission: 09/02/22 08:04 Primary care physician: Jay Jay Frankel MD Consults: 08/31/22 13:01 Occupational Therapy Eval and Treat Routine Physical Therapy Eval and Treat Routine 09/01/22 09:01 Occupational Therapy Eval and Treat Routine Physical Therapy Eval and Treat Routine 09/02/22 07:38 Consult to Cardiology Routine Consulting Provider: Yanira Emery 09/02/22 07:42 Consult to Geospatial Engineer Routine Reason for consult:: shelter DS: Diagnosis Discharge Diagnosis (1) Weakness: (2) Edema, peripheral: (3) Inability to walk: (4) Acute hypokalemia: (5) Congestive heart failure: (6) COPD (chronic obstructive pulmonary disease): (7) Hypertension: (8) Hx of coronary artery disease: Plan Patient admitted with increasing shortness of breath. Found to have acute combined congestive heart failure. Diuresed well. But did not really significantly improve her oxygenation. Still with significant weakness. Overnight patient's hypoxia became worse and patient CTA showed pulmonary embolism. Transferred to tertiary care facility for interventional procedure. Stable at the time of transfer. DS: Summary Time Spent with Patient Time attestation: Total time spent providing and/or coordinating discharge services: Exam Constitutional Vital Signs, click to edit/add: Last Vital Signs Temp 97.8 F 09/03/22 00:15 Pulse 95 H 09/03/22 00:15 Resp 18 09/03/22 00:15 BP 104/84 H 09/03/22 00:15 Pulse Ox 98 09/03/22 03:47 O2 Del Method Nasal Cannula 09/03/22 03:47 O2 Flow Rate 2 09/03/22 03:47 DS: Data Data Completed and Pending Labs on day of discharge: Preliminary micro results at discharge 08/31/22 09:50 Blood Culture Result 1 - Preliminary Blood Discharge Plan Discharge Disposition: [facility] Hospital Condition: Fair Discharge Date/Time: 09/03/22 03:30 Discharge Location: [facility] Discharge location: [facility] #[id number]
[2022-09-03 10:42] LABS: A. calcoaceticus-baumannii Cpx NOT DETECTED (NOT DETECTE); Bacteroides fragilis NOT DETECTED (NOT DETECTE); Candida albicans NOT DETECTED (NOT DETECTE); Candida auris NOT DETECTED (NOT DETECTE); Candida glabrata NOT DETECTED (NOT DETECTE); Candida krusei NOT DETECTED (NOT DETECTE); Candida parapsilosis NOT DETECTED (NOT DETECTE); Candida tropicalis NOT DETECTED (NOT DETECTE); Cryptococcus neoformans/gattii NOT DETECTED (NOT DETECTE); Enterobacter cloacae complex NOT DETECTED (NOT DETECTE); Enterobacterales NOT DETECTED (NOT DETECTE); Enterococcus faecalis NOT DETECTED (NOT DETECTE); Enterococcus faecium NOT DETECTED (NOT DETECTE); Haemophilus influenzae NOT DETECTED (NOT DETECTE); Klebsiella aerogenes NOT DETECTED (NOT DETECTE); Klebsiella pneumoniae group NOT DETECTED (NOT DETECTE); Listeria monocytogenes NOT DETECTED (NOT DETECTE); Neisseria meningitidis NOT DETECTED (NOT DETECTE); Proteus spp. NOT DETECTED (NOT DETECTE); Pseudomonas aeruginosa NOT DETECTED (NOT DETECTE); Salmonella spp. NOT DETECTED (NOT DETECTE); Serratia marcescens NOT DETECTED (NOT DETECTE); Staphylococcus epidermidis NOT DETECTED (NOT DETECTE); Staphylococcus lugdunensis NOT DETECTED (NOT DETECTE); Staphylococcus spp. NOT DETECTED (NOT DETECTE); Stenotrophomonas maltophilia NOT DETECTED (NOT DETECTE); Streptococcus agalactiae NOT DETECTED (NOT DETECTE); Streptococcus pneumoniae NOT DETECTED (NOT DETECTE); Streptococcus pyogenes NOT DETECTED (NOT DETECTE); Streptococcus spp. NOT DETECTED (NOT DETECTE)
== END 2022-09-03 03:30 | disposition short-term general hospital (02) | DRG 291 ==
LOC: ER 13:17 → MS 13:48 → ICU 09-03 03:10 → MS 09-03 12:39 → ICU 09-03 12:39
PROVIDERS: Internal Medicine; Admitting Provider Internal Medicine; Emergency Provider Emergency Medicine; PCP Family Medicine; Visit Provider Internal Medicine
DX: I11.0 Hypertensive heart disease with heart failure (principal); I26.99 Other pulmonary embolism without acute cor pulmonale; I50.41 Acute combined systolic (congestive) and diastolic (congestive) heart failure; N39.0 Urinary tract infection, site not specified; E87.6 Hypokalemia; R53.1 Weakness; J44.9 Chronic obstructive pulmonary disease, unspecified; I25.10 Atherosclerotic heart disease of native coronary artery without angina pectoris; R60.9 Edema, unspecified; R26.2 Difficulty in walking, not elsewhere classified; I95.9 Hypotension, unspecified; E03.9 Hypothyroidism, unspecified; G47.30 Sleep apnea, unspecified; K59.00 Constipation, unspecified; Z82.49 Family history of ischemic heart disease and other diseases of the circulatory system; Z83.3 Family history of diabetes mellitus; Z82.5 Family history of asthma and other chronic lower respiratory diseases; Z79.82 Long term (current) use of aspirin; Z79.02 Long term (current) use of antithrombotics/antiplatelets; Z79.899 Other long term (current) drug therapy; E66.01 Morbid (severe) obesity due to excess calories; Z68.38 Body mass index [BMI] 38.0-38.9, adult
CPT/HCPCS: 36415; 51702; 71045; 71275; 80048; 80053; 80307; 81001; 83605; 83735; 83880; 84436; 84443; 84481; 84484; 85014; 85018; 85025; 85378; 85610; 85730; 87040; 87070; 87086; 87150; 87186; 93005; 93306; 94761; 96365; 96366; 96367; 96368; 96372; 96375; 96376; 97161; 97165; 99285; G0378; P9047; Q3014; Q9967

== ENCOUNTER 2022-11-28 16:50 | Inpatient (IN) | payer MEDICARE, SELFPAY ==
[2022-11-28] VITALS (25 sets, daily range): BP systolic 72–108; BP diastolic 0–78; PULSE 82–125; RESP 11–121; TEMP 36.4–36.6; O2SAT 81–95; BMI 36.6; BMI 35.5
--- NOTE | 2022-11-28 16:59 | ECG_ITS ---
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
--- NOTE | 2022-11-28 17:01 | ED_ITS ---
HPI - General Adult General Chief complaint: Weakness Stated complaint: weakness Time Seen by Provider: 11/28/22 16:53 Source: patient Mode of arrival: ambulance Limitations: no limitations History of Present Illness HPI narrative: 67-year-old female presents to the emergency department for nausea vomiting diarrhea and weakness. She's been feeling this way for a few days. No known fever or hematemesis. She feels weak. No known ill contacts and she does not complain of abdominal pain. Related Data Home Medications Medication Instructions Recorded Confirmed albuterol sulfate 2.5 mg/3 mL mg 08/31/22 (0.083 %) solution for nebulization aspirin 81 mg capsule 81 mg PO DAILY 08/31/22 08/31/22 carvedilol 12.5 mg tablet 12.5 mg PO Q12H 08/31/22 08/31/22 clopidogrel 75 mg tablet 75 mg PO QDAY 08/31/22 08/31/22 hydroxychloroquine 200 mg tablet 200 mg PO QDAY 08/31/22 08/31/22 isosorbide mononitrate 30 mg 30 mg PO QDAY 08/31/22 08/31/22 tablet,extended release 24 hr uydzsinq-uaf-bvihcn-choline-bioflavonoids tab PO 08/31/22 111 mg-111 mg-100 mg tablet pantoprazole 40 mg tablet,delayed mg PO 08/31/22 release simvastatin 20 mg tablet 20 mg PO QDAY 08/31/22 08/31/22 Allergies Allergy/AdvReac Type Severity Reaction Status Date / Time No Known Drug Allergies Allergy Verified 11/28/22 16:56 Review of Systems ROS Narrative A ten point review of systems is negative except as noted above. [facility] Medical History (Updated 11/28/22 @ 18:48 by Demian Rodriguez MD) Arthritis ?M19.90 - Unspecified osteoarthritis, unspecified site (ICD-10) Congestive heart failure ?I50.9 - Heart failure, unspecified (ICD-10) COPD (chronic obstructive pulmonary disease) ?J44.9 - Chronic obstructive pulmonary disease, unspecified (ICD-10) Hx of coronary artery disease ?Z86.79 - Personal history of other diseases of the circulatory system (ICD- 10) Hx of gastroesophageal reflux (GERD) ?Z87.19 - Personal history of other diseases of the digestive system (ICD-10) Hypertension ?I10 - Essential (primary) hypertension (ICD-10) Raynaud disease ?I73.00 - Raynaud's syndrome without gangrene (ICD-10) Scleroderma ?M34.9 - Systemic sclerosis, unspecified (ICD-10) Surgical History (Updated 08/31/22 @ 12:23 by Marbin Mazariegos) History of esophagogastroduodenoscopy (EGD) ?Z98.890 - Other specified postprocedural states (ICD-10) Hx of colonoscopy ?Z98.890 - Other specified postprocedural states (ICD-10) Hx of tonsillectomy ?Z90.89 - Acquired absence of other organs (ICD-10) Family History (Updated 08/31/22 @ 15:48 by Raisa Tenorio) Father Family history of CHF (congestive heart failure) Mother Family history of hypertension Other Family history of COPD (chronic obstructive pulmonary disease) Family history of diabetes mellitus Family history of myocardial infarction Social History (Updated 08/31/22 @ 15:51 by Raisa Tenorio) Within the past year, how often did you have a drink containing alcohol: never Score interpretation: A score less than 3 is consistent with normal alcohol consumption. Smoking status: Never smoker Non-prescribed substance use: denies use Previous occupational history: retired Highest level of school completed/degree received: high school graduate Are you now , , , , never or living with a partner: In a typical week, how many times do you talk on the telephone with family, friends, or neighbors: 3 or more times per week How often do you get together with friends or relatives: 3 or more times per week How often do you attend caodaism or evangelical services: 4 or more times per year Do you belong to any clubs or organizations such as caodaism groups unions, fraternal or athletic groups, or school groups: no Total score: 2 Score interpretation: A score of greater than or equal to 2 indicates the lowest level of social isolation. Little interest or pleasure in doing things: not at all Feeling down, depressed, or hopeless: not at all Feel stressed/tense/nervous/anxious/difficulty sleeping: not at all Due to disability, difficulty making decisions: No Do you think of yourself as: straight/heterosexual Exam Narrative Exam Narrative: Nurses note and vital signs reviewed and patient is not hypoxic. General: The patient appears uncomfortable and is retching into an emesis basin. Skin: Warm, dry, no pallor noted. There is no rash noted. Head: Normocephalic, atraumatic Eye: Normal conjunctiva, no drainage Ears, Nose, Mouth, and Throat: oral mucosa is moist. Nares patent. Cardiovascular: Regular Rate and Rhythm Respiratory: Patient is in no distress, no accessory muscle use, lungs are clear to auscultation, no wheezing, rales or rhonchi Back: non-tender GI: soft and nontender Musculoskeletal: The patient has no evidence of calf tenderness, no pitting edema, symmetrical pulses noted bilaterally Neurological: A&O, normal speech Psychiatric: Cooperative Constitutional Vital Signs, click to edit/add: Last Vital Signs Temp 97.5 F L 11/28/22 16:52 Pulse 108 H 11/28/22 18:30 Resp 18 11/28/22 18:30 BP 92/70 11/28/22 18:15 Pulse Ox 95 11/28/22 18:37 O2 Del Method Room Air 11/28/22 16:52 Course Vital Signs Vital signs: Vital Signs Temperature 97.5 F L 11/28/22 16:52 Pulse Rate 108 H 11/28/22 16:52 Respiratory Rate 16 11/28/22 16:52 Blood Pressure 99/78 11/28/22 16:52 Pulse Oximetry 94 L 11/28/22 16:52 Oxygen Delivery Method Room Air 11/28/22 16:52 Temperature 97.5 F L 11/28/22 16:52 Pulse Rate 108 H 11/28/22 18:30 Respiratory Rate 18 11/28/22 18:30 Blood Pressure 92/70 11/28/22 18:15 Pulse Oximetry 95 11/28/22 18:37 Oxygen Delivery Method Room Air 11/28/22 16:52 Medical Decision Making MDM Narrative Medical decision making narrative: The patient has nausea vomiting and appears dehydrated. Potassium low at 2.3 and she was given oral supplementation. She was also given IV Zofran and IV fluids. She'll need to be admitted to the hospital. Initial troponin is sixty-eight but this is likely due to the renal function and a repeat is pending. Differential Diagnosis Differential Diagnosis: gastroenteritis, dehydration, acute kidney injury Lab Data Lab results reviewed: Yes I reviewed the patient's lab results Labs: Lab Results 11/28/22 Range/Units 17:12 WBC 5.5 (4.0-11.0) 10^3/uL RBC 5.32 (4.20-5.40) 10^6/uL Hgb 13.8 (12.0-16.0) g/dL Hct 40.9 (36.0-48.0) % MCV 76.9 L (81.0-99.0) fL MCH 25.9 L (26.7-34.0) pg MCHC 33.7 (29.9-35.2) g/dL RDW 21.1 H (11.0-15.0) % Plt Count 142 L (150-450) 10^3/uL Neut % (Auto) 81.5 H (43.0-75.0) % Lymph % (Auto) 8.9 L (20.5-60.0) % Morrill % (Auto) 8.5 (1.7-12.0) % Eos % (Auto) 0.0 L (0.9-7.0) % Baso % (Auto) 0.7 (0.2-2.0) % Neut # (Auto) 4.5 (1.4-6.5) 10^3/uL Lymph # (Auto) 0.5 L (1.2-3.8) 10^3/uL Morrill # (Auto) 0.5 (0.3-0.8) 10^3/uL Eos # (Auto) 0.0 (0.0-0.7) 10^3/uL Baso # (Auto) 0.0 (0.0-0.1) 10^3/uL Abs Immat Gran (auto) 0.02 (0.00-0.03) 10^3/uL Imm/Tot Granulo (auto) 0.4 (0.0-0.5) % Sodium 133 L (136-145) mmol/L Potassium 2.3 L* (3.5-5.1) mmol/L Chloride 94 L (98-107) mmol/L Carbon Dioxide 27.8 (21.0-32.0) mmol/L Anion Gap 13.5 BUN 33.0 H (7.0-18.0) mg/dL Creatinine 1.74 H (0.55-1.02) mg/dL Est GFR ( Amer) 35 L (>=60) Est GFR (Non-Af Amer) 29 L (>=60) BUN/Creatinine Ratio 19.0 Glucose 52 L (74-106) mg/dL Calcium 8.4 L (8.5-10.1) mg/dL Troponin I High Sens 68.1 H* (4.0-51.3) pg/mL ECG Data Attestation: I personally reviewed and interpreted this ECG as follows: (and EKG on my interpretation shows sinus rhythm without acute changes and a rate of 101.) Discharge Plan Discharge Chief Complaint: Weakness Clinical Impression: Nausea & vomiting, Dehydration, Acute hypokalemia Patient Disposition: Admitted as Observation Time of Disposition Decision: 18:48 Condition: Fair
[2022-11-28] MEDS: 0.9 % SODIUM CHLORIDE 1,000 ML 1000 ML IV (17:22)
[2022-11-28] MEDS: ONDANSETRON PF 4 MG/2 ML VIAL IV ×2 (17:22→18:50)
[2022-11-28 17:34] LABS: Basophils Percent Auto 0.7 % (0.2-2.0); Hematocrit 40.9 % (36.0-48.0); Hemoglobin 13.8 g/dL (12.0-16.0); Immature Granulocytes Abs Auto 0.02 10^3/uL (0.00-0.03); Immature Granulocytes Pct Auto 0.4 % (0.0-0.5); Lymphocytes Absolute Auto 0.5 10^3/uL (1.2-3.8); Lymphocytes Percent Auto 8.9 % (20.5-60.0); Mean Corpuscular HGB Conc 33.7 g/dL (29.9-35.2); Mean Corpuscular Hemoglobin 25.9 pg (26.7-34.0); Mean Corpuscular Volume 76.9 fL (81.0-99.0); Monocytes Absolute Auto 0.5 10^3/uL (0.3-0.8); Monocytes Percent Auto 8.5 % (1.7-12.0); Neutrophils Absolute Auto 4.5 10^3/uL (1.4-6.5); Neutrophils Percent Auto 81.5 % (43.0-75.0); Platelet Count 142 10^3/uL (150-450); Red Blood Count 5.32 10^6/uL (4.20-5.40); Red Cell Distribution Width 21.1 % (11.0-15.0); White Blood Count 5.5 10^3/uL (4.0-11.0)
[2022-11-28 17:53] LABS: Anion Gap 13.5; Calcium 8.4 mg/dL (8.5-10.1); Carbon Dioxide 27.8 mmol/L (21.0-32.0); Chloride 94 mmol/L (98-107); Estimated GFR (African America 35 (>=60); Estimated GFR (Non-African Ame 29 (>=60); Glucose 52 mg/dL (74-106); Sodium 133 mmol/L (136-145)
[2022-11-28 17:58] LABS: Potassium 2.3 mmol/L (3.5-5.1)
[2022-11-28 17:59] LABS: Troponin I High Sensitivity 68.1 pg/mL (4.0-51.3)
[2022-11-28] MEDS: POTASSIUM BICARBONATE/CIT 25 MEQ TABLET EFF 50 MEQ PO (18:28)
[2022-11-28 18:51] LABS: Troponin I High Sensitivity 71.7 pg/mL (4.0-51.3)
--- NOTE | 2022-11-28 18:53 | PC.NURSE ---
PT UNABLE TO KEEP DOWN ORAL POTASSIUM AT THIS TIME. DR MASTERS INFORMED
--- NOTE | 2022-11-28 20:38 | CT_ITS ---
[address] [address] Patient Name: PRICILA GURROLA MRN: [id number] date: 1955 Sex: F Assigned Patient Location: [place] Current Patient Location: [place] Accession/Order Number: [id number] Exam Date: 11/28/2022 21:12 Report Date: 11/28/2022 21:56 At the request of: KENDRICK Robert SISTER Procedure: CT abdomen pelvis wo con CT ABDOMEN/PELVIS WITHOUT IV CONTRAST. INDICATION: Nausea and vomiting COMPARISON: CT chest dated 05/16/2017 TECHNIQUE: Contiguous axial images were obtained from the lung bases to the pelvic floor without intravenous or oral contrast. Coronal and sagittal reformations are provided. FINDINGS: LOWER LUNGS: There are small bilateral pleural effusions and atelectasis. There is a small to moderate-sized pericardial effusion. LIVER/BILIARY TREE: No discrete lesion. No intrahepatic ductal dilatation. Hepatic steatosis. GALLBLADDER: No significant gallbladder wall thickening. No radiopaque stone. CBD: Normal CBD. SPLEEN: Normal in size. PANCREAS: No appreciable peripancreatic fluid. No pancreatic ductal dilatation. There are several low-density lesions in the pancreatic body measuring up to 1.5 cm. ADRENALS: Normal. KIDNEYS: No hydronephrosis. Bilateral nephrolithiasis. STOMACH AND BOWEL: Decompressed stomach. No dilated bowel loops. No bowel wall thickening. APPENDIX: Normal appendix. PERITONEAL CAVITY: There is a small amount of free fluid in the pelvis. No fat stranding. ABDOMINAL WALL: Anasarca. LYMPH NODES: No mesenteric or retroperitoneal lymphadenopathy by CT criteria. ABDOMINAL AORTA: There is a 3.2 cm aneurysm of the infrarenal abdominal aorta.. PELVIS: No acute abnormality. MUSCULOSKELETAL: No acute osseous abnormality. CT/CT abdomen pelvis wo con IMPRESSION: 1. No acute abnormality in the abdomen or pelvis. 2. Anasarca. 3. Small bilateral pleural effusions and small to moderate-sized pericardial effusion. 4. Infrarenal abdominal aorta 3.2 cm aneurysm. 5. Several low-density pancreatic lesions some of which are stable when compared to CT chest dated 05/16/2017. Consider nonemergent outpatient MRI pancreatic protocol. Electronically authenticated by: KELLEY RICCI Date: 11/28/2022 21:56
--- NOTE | 2022-11-28 20:41 | W.PM.TELEPN ---
Progress Note: Subjective Subjective Interval history: Chief, plans: Nausea, vomiting, diarrhea x3 days History of Present Illness: This is a very pleasant 67 years old female who presents with above complaints. Patient stating that over the course the last 3 days she has been experienced nausea, vomiting, diarrhea. She is unable to tolerate any oral intake. Patient denies any hematemesis or hematochezia. She becomes very weak. Evaluation in the emergency room has been significant for low blood pressure. Patient been responding to IV fluid boluses. Urinalysis shows signs of urinary tract infection. Blood work significant for signs of dehydration, acute renal insufficiency, hypokalemia and hypomagnesemia. I did not see any abdominal imaging. Admitted to medical services for further evaluation and treatment Exam Narrative Exam Narrative: ROS: 1.General: See above 2.HEENT: no HANDLEY, no blurry vision, no swallow problems, no nasal congestion, no sore throat 3.Pulmonary: no cough, SOB, wheezes 4.CVS: no CP, no palpitations, no HALEY, no SOB, no intermittent claudication 5.GI: See above 6.: no renal colic, no hematuria, urinary frequency or urgency 7.Extremities: no edema 8.Neurological: no dizziness, vertigo, double or blurry vision, no no focal weakness, no paresthesia, no swallow or speech problems 9.Musculosceletal: no joint pains, no joint swelling, no back pain 10.Dermatological: no skin rashes, no lesions, no pruritus 11.Hematological: no bleeding, no hx/o clots 12.Endocrinological: no heat/cold intolerance, no hx/o diabetes 13.Psychiatric: no suicidal or homicidal thoughts Physical Exam: Not in distress, pleasant, lucid, cooperative, Head - atraumatic, eyes - pupils equal, round, reactive to light, extra ocular movement intact, MMM Neck - supple, thyroid not enlarged, LN not palpated Lungs - clear to auscultation, no dullness on percussion CVS - heart sounds S1, S2, no additional murmurs gallop, regular rate and rhythm Gastrointestinal?abdomen is soft, non-tender, non-distended, no organomegaly, positive bowel sounds Extremities no clubbing, cyanosis or edema Neurological?cranial nerve II?XII grossly intact, no meningeal signs, no cerebellar signs, no sensory deficit Musculoskeletal - joints, no effusions, ROM preserved Dermatological - the skin dry, warm, no rashes Psychiatric?patient is AAO X3, patient has normal affect Constitutional Vital Signs, click to edit/add: Last Vital Signs Temp 97.9 F 11/28/22 20:21 Pulse 102 H 11/28/22 20:39 Resp 15 11/28/22 20:21 BP 72/0 L 11/28/22 20:21 Pulse Ox 91 L 11/28/22 20:21 O2 Del Method Room Air 11/28/22 20:21 Progress Note: Objective Labs Labs: Short CBC 11/28/22 Range/Units 17:12 WBC 5.5 (4.0-11.0) 10^3/uL Hgb 13.8 (12.0-16.0) g/dL Hct 40.9 (36.0-48.0) % Plt Count 142 L (150-450) 10^3/uL BMP 11/28/22 17:12 Sodium 133 L Potassium 2.3 L* Chloride 94 L Carbon Dioxide 27.8 BUN 33.0 H Creatinine 1.74 H Glucose 52 L Calcium 8.4 L Progress Note: A&P Assessment and Plan (1) Nausea & vomiting: Assessment and Plan: Reason unclear. Suspect gastroenteritis. Symptoms controlled. Started on IV fluid resuscitation. Ordered Pepcid in addition to Prilosec. (2) Dehydration: Assessment and Plan: As above. Monitor BUN and creatinine while receiving IV fluid challenge (3) Acute hypokalemia: Assessment and Plan: Patient unable to tolerate p.o. Started on IV replacement. I ordered BMP to be checked frequently and telemetry monitoring (4) Congestive heart failure: Assessment and Plan: I am going to hold off diuretics. Continue with fluid resuscitation. Monitor for signs of fluid overload (5) COPD (chronic obstructive pulmonary disease): Assessment and Plan: Verify and resume home regiment (6) Hx of coronary artery disease: Assessment and Plan: Patient is chest pain-free. Monitor on telemetry. Continue home medications. I noted patient takes aspirin and Plavix. (7) Raynaud disease: Assessment and Plan: Defer to outpatient management (8) Scleroderma: Assessment and Plan: Defer to outpatient management (9) Hx of gastroesophageal reflux (GERD): Assessment and Plan: Continue with Pepcid and Protonix (10) UTI (urinary tract infection): Assessment and Plan: I started patient on Rocephin Follow-up results of the blood in urine culture I ordered noncontrast CT of the abdomen and pelvis Plan END: As the provider for the telehealth service, I attest that I introduced myself to the patient, provided my credentials, disclosed by location and determined that based on a review of the patient's chart and discussion with members of the patient's treatment team, telemedicine via real-time, 2 way, and interactive audio and video platform is an appropriate and effective means of providing the service. ?The patient and I mutually agree this visit is appropriate for telemedicine. ?The virtual encounter was taken place from? [place], [place]. ?The encounter took approximately 35 minutes. ?The nurse was present during the entire time and I was able to move the stethoscope in appropriate directions. ?The patient was evaluated at the Hospital ? Portions of this note may be dictated using [employer] voice recognition software. Variances in spelling and vocabulary are possible and unintentional. Not all errors may be caught and/or corrected. Please notify the author if any discrepancies are noted and/or if the meaning of any statement is unclear.? ? Patient verbally consented for treatment via video visit with patient currently located at the [facility] and provider located in [place]. Telemedicine Attestation Telemedicine Attestation I conducted this encounter from [[place]] via secure live, [id number]-[id number] video conference with the patient, located at [facility] with [acute renal insufficiency]. Prior to the interview, the risks and benefits of telemedicine were discussed with the patient and verbal consent was obtained.
[2022-11-28 21:12] LABS: Basophils Percent Auto 0.7 % (0.2-2.0); Hematocrit 41.2 % (36.0-48.0); Hemoglobin 13.7 g/dL (12.0-16.0); Immature Granulocytes Abs Auto 0.06 10^3/uL (0.00-0.03); Lymphocytes Absolute Auto 0.5 10^3/uL (1.2-3.8); Lymphocytes Percent Auto 8.6 % (20.5-60.0); Mean Corpuscular HGB Conc 33.3 g/dL (29.9-35.2); Mean Corpuscular Hemoglobin 26.2 pg (26.7-34.0); Mean Corpuscular Volume 78.8 fL (81.0-99.0); Monocytes Absolute Auto 0.5 10^3/uL (0.3-0.8); Monocytes Percent Auto 8.7 % (1.7-12.0); Neutrophils Absolute Auto 4.7 10^3/uL (1.4-6.5); Platelet Count 126 10^3/uL (150-450); Red Blood Count 5.23 10^6/uL (4.20-5.40); Red Cell Distribution Width 21.5 % (11.0-15.0); White Blood Count 5.8 10^3/uL (4.0-11.0)
[2022-11-28 21:24] LABS: Anion Gap 16.6; BUN Creatinine Ratio 18.3; Calcium 8.3 mg/dL (8.5-10.1); Carbon Dioxide 26.9 mmol/L (21.0-32.0); Chloride 94 mmol/L (98-107); Estimated GFR (African America 35 (>=60); Estimated GFR (Non-African Ame 29 (>=60); Sodium 135 mmol/L (136-145)
[2022-11-28 21:29] LABS: Glucose 49 mg/dL (74-106); Potassium 2.5 mmol/L (3.5-5.1)
[2022-11-28] MEDS: FAMOTIDINE/PF 20 MG/2 ML VIAL IV (21:33)
[2022-11-28] MEDS: 0.9 % SODIUM CHLORIDE 1,000 ML 100 ML IV (21:33)
[2022-11-28] MEDS: 0.9 % SODIUM CHLORIDE 250 ML IV.SOLN IV (21:37)
[2022-11-28] MEDS: MAGNESIUM SULFATE 2 GM in 0.9 % SODIUM CHLORIDE 100 ML IV (21:49)
[2022-11-28] MEDS: CEFTRIAXONE 1,000 MG in 0.9 % SODIUM CHLORIDE 50 ML 100 MG IV (22:53)
[2022-11-28] MEDS: POTASSIUM CHLORIDE 40 MEQ in 0.9 % SODIUM CHLORIDE 250 ML 50 MEQ IV (23:23)
[2022-11-29] VITALS (102 sets, daily range): BP systolic 45–146; BP diastolic 25–100; PULSE 91–115; RESP 2–22; TEMP 37.1; O2SAT 74–97
[2022-11-29 00:27] LABS: Glucometer 63 mg/dL (74-106)
[2022-11-29] MEDS: 0.9 % SODIUM CHLORIDE 1,000 ML 100 ML IV ×2 (05:47→09:50)
[2022-11-29] MEDS: ONDANSETRON PF 4 MG/2 ML VIAL IV (06:50)
--- NOTE | 2022-11-29 07:03 | CA_ITS ---
Patient: PRICILA GURROLA Exam Date: 11/29/2022 : 1955 Gender:F Ordering : DR Jay Jay Frankel . Admission #: [id number] Family : KENDRICK Brooke SISTER Order #: [id number] CLICK HERE TO VIEW EXAM ECHOCARDIOGRAM REPORT PROCEDURE: CA ECHO LIMITED INDICATIONS: Pericardial effusion COMPARISON: None. DESCRIPTION: Limited ECHOCARDIOGRAM Real-time transthoracic echocardiography with 2D and M-mode performed. QUALITY: Technical quality was good. Limited echocardiogram per physician order. LEFT VENTRICLE: Small chamber size. D-shaped septum due to RV pressure and/or volume or volume overload. LV EF: Normal left ventricular ejection fraction, (>55%). LEFT ATRIUM: Normal chamber size. RIGHT ATRIUM: Severe dilatation. RIGHT VENTRICLE: Severe dilatation. Severely reduced systolic function. TRICUSPID VALVE: Normal mobility and thickness. Severe regurgitation. Severely elevated right-sided heart pressures; RVSP 72 mmHg MITRAL VALVE: Mildly thickened with normal mobility. Mild mitral annular calcification. AORTIC VALVE: Normal trileaflet appearance. Thickened aortic valve. Normal leaflet mobility. AORTIC ROOT: Normal diameter and appearance. PULMONIC VALVE: Normal thickness and mobility. PERICARDIUM: Moderate to large, loculated pericardial effusion posterior to the left ventricle. CONCLUSION: 1. Global left ventricular systolic function is normal; visually estimated ejection fraction is 55 to 60% 2. Small left ventricular chamber size; D shaped septum consistent with right ventricular pressure and volume overload 3. The right ventricle is severely enlarged with severely reduced systolic function 4. Severe tricuspid regurgitation 5. Severely elevated right ventricular systolic pressure; RVSP 72 mmHg 6. There is a moderate to large, loculated pericardial effusion seen posterior to the base of the left ventricle A limited echocardiogram was performed Adult Echocardiography Procedure Report Left Ventricle LVEDD (3.7 - 5.6 cm): 3.23 cm LVESD (2.2 - 4.0 cm): 1.40 cm LVIVS thickness (0.6 - 1.2 cm): 1.41 cm LVPW thickness (0.5 - 1.0 cm): 1.28 cm LVOT Diameter 2.18 cm Left Atrium Left Atrium Systolic Dimension: 3.04 cm Mitral Valve Right Ventricle Aorta AO Root Diam: 3.02 cm Ascending Ao Diam: 3.13 cm Aortic Valve Tricuspid Valve Peak Velocity (Regurgitant Flow): 3.77 m/s, 3.67 m/s Pulmonic Valve Right Atrium Right Atrium Systolic Pressure: 133.95 ml, 133.95 ml Dictated by: Yanira Emery M.D. on 11/29/2022 at 12:12 Approved by: Yanira Emery M.D. on 11/29/2022 at 12:20
[2022-11-29 07:54] LABS: Amylase 18 U/L (25-115); Magnesium 1.8 mg/dL (1.8-2.4)
--- NOTE | 2022-11-29 08:01 | P.HP_ITS ---
H&P: HPI History of Present Illness Chief complaint: Acute Hypokalemia, Dehydration, Acute Renal Injury Narrative: Patient had called our office the previous day just feeling weak, not been out of bed for 2 days, had emesis for the 2 days prior although none on the day of admission, recommended since we are unable to get her into the office, her best bet would be to go out to the emergency room after some reassurance and for what what happened in the emergency room she agreed to go out. Found to be dehydrat ed. Admitted overnight to observation for dehydration. Once I saw the patient on the floor she was very lethargic, difficulty with her speech other mucous membranes were still somewhat dry. Patient became acutely hypoxic and acutely hypotensive. Was transferred back to the intensive care unit in the intensive care unit patient was improving initially but then had a reoccurrence of her hypotension. At that point patient was found to have acute pulmonary embolism. With right heart strain. Case was discussed with cardiology at [facility] who agreed to accept patient in transfer for acute treatment Review of Systems ROS Status of ROS 10 or more systems reviewed and unremarkable except as noted in history and below [facility] Medical History (Updated 11/28/22 @ 20:48 by Clovis Beckman MD) Arthritis ?M19.90 - Unspecified osteoarthritis, unspecified site (ICD-10) Congestive heart failure ?I50.9 - Heart failure, unspecified (ICD-10) COPD (chronic obstructive pulmonary disease) ?J44.9 - Chronic obstructive pulmonary disease, unspecified (ICD-10) Hx of coronary artery disease ?Z86.79 - Personal history of other diseases of the circulatory system (ICD-10) Hx of gastroesophageal reflux (GERD) ?Z87.19 - Personal history of other diseases of the digestive system (ICD-10) Hypertension ?I10 - Essential (primary) hypertension (ICD-10) Raynaud disease ?I73.00 - Raynaud's syndrome without gangrene (ICD-10) Scleroderma ?M34.9 - Systemic sclerosis, unspecified (ICD-10) Surgical History (Updated 08/31/22 @ 12:23 by Marbin Mazariegos) History of esophagogastroduodenoscopy (EGD) ?Z98.890 - Other specified postprocedural states (ICD-10) Hx of colonoscopy ?Z98.890 - Other specified postprocedural states (ICD-10) Hx of tonsillectomy ?Z90.89 - Acquired absence of other organs (ICD-10) Family History (Updated 08/31/22 @ 15:48 by Raisa Tenorio) Father Family history of CHF (congestive heart failure) Mother Family history of hypertension Other Family history of COPD (chronic obstructive pulmonary disease) Family history of diabetes mellitus Family history of myocardial infarction Social History (Updated 08/31/22 @ 15:51 by Raisa Tenorio) Within the past year, how often did you have a drink containing alcohol: never Score interpretation: A score less than 3 is consistent with normal alcohol consumption. Smoking status: Never smoker Non-prescribed substance use: denies use Previous occupational history: retired Highest level of school completed/degree received: high school graduate Are you now , , , , never or living with a partner: In a typical week, how many times do you talk on the telephone with family, friends, or neighbors: 3 or more times per week How often do you get together with friends or relatives: 3 or more times per week How often do you attend pentecostal or gnosticist services: 4 or more times per year Do you belong to any clubs or organizations such as pentecostal groups unions, fra[employer]ons[employer] or athletic groups, or school groups: no Total score: 2 Score interpretation: A score of greater than or equal to 2 indicates the lowes t level of social isolation. Little interest or pleasure in doing things: not at all Feeling down, depressed, or hopeless: not at all Feel stressed/tense/nervous/anxious/difficulty sleeping: not at all Due to disability, difficulty making decisions: No Do you think of yourself as: straight/heterosexual Meds Home Medications and Allergies Home Medications Medication Instructions Recorded Confirmed Type albuterol sulfate 2.5 mg/3 mL 1.25 mg inhalation Q4H PRN 08/31/22 11/28/22 History (0.083 %) solution for nebulization shortness of breath or wheezing aspirin 81 mg capsule 81 mg PO DAILY 08/31/22 11/28/22 History carvedilol 12.5 mg tablet 12.5 mg PO Q12H 08/31/22 11/28/22 History clopidogrel 75 mg tablet 75 mg PO QDAY 08/31/22 11/28/22 History hydroxychloroquine 200 mg tablet 200 mg PO QDAY 08/31/22 11/28/22 History isosorbide mononitrate 30 mg 30 mg PO QDAY 08/31/22 11/28/22 History tablet,extended release 24 hr qfptctzn-vnz-mqrdzb-choline-bioflavonoids tab PO 08/31/22 History 111 mg-111 mg-100 mg tablet pantoprazole 40 mg tablet,delayed 40 mg PO .am 08/31/22 11/28/22 History release simvastatin 20 mg tablet 20 mg PO QDAY 08/31/22 11/28/22 History metoprolol succinate 25 mg mg PO 11/28/22 History tablet,extended release 24 hr Allergies Allergy/AdvReac Type Severity Reaction Status Date / Time No Known Drug Allergies Allergy Verified 11/28/22 16:56 Exam Constitutional Vital Signs, click to edit/add: Last Vital Signs Temp 98.7 F 11/29/22 04:19 Pulse 106 H 11/29/22 06:16 Resp 14 11/29/22 04:19 BP 102/68 11/29/22 04:19 Pulse Ox 90 L 11/29/22 04:19 O2 Del Method Room Air 11/29/22 04:19 Documenting provider has reviewed patient's vital signs: yes Common normals: apparent distress Exam limitations: altered mental status General appearance: cooperative HENMO Common normals: normocephalic and head/scalp atraumatic Chest Common normals: inspection of chest normal and palpation of chest normal Respiratory Common normals: abnormal respiratory effort Auscultation: crackles Cardio Common normals: irregular rate Rate: tachycardic Results Labs Labs: Short CBC 11/28/22 11/28/22 Range/Units 17:12 20:55 WBC 5.5 5.8 (4.0-11.0) 10^3/uL Hgb 13.8 13.7 (12.0-16.0) g/dL Hct 40.9 41.2 (36.0-48.0) % Plt Count 142 L 126 L (150-450) 10^3/uL BMP 11/28/22 11/28/22 17:12 20:55 Sodium 133 L 135 L Potassium 2.3 L* 2.5 L* Chloride 94 L 94 L Carbon Dioxide 27.8 26.9 BUN 33.0 H 32.0 H Creatinine 1.74 H 1.75 H Glucose 52 L 49 L* Calcium 8.4 L 8.3 L Assessment and Plan Assessment and Plan (1) Nausea & vomiting: (2) Dehydration: (3) Acute hypokalemia: (4) Congestive heart failure: (5) COPD (chronic obstructive pulmonary disease): (6) Hx of coronary artery disease: (7) Raynaud disease: (8) Scleroderma: (9) Hx of gastroesophageal reflux (GERD): (10) UTI (urinary tract infection): Plan Patient with nausea vomiting dehydration with tachycardia. Patient became acutely hypoxic. Stat CT a of the chest showed pulmonary embolism. Echocardiogram confirmed with right heart strain. Case was discussed with cardiology agreed to accept patient in transfer to [facility] with acute hypoxic respiratory failure secondary to acute pulmonary embolism with likely sepsis with septic shock secondary to significant hypotension, elevated BUN and creatinine, patient placed on Levophed to improve blood pressure.. Once this pulmonary embolism was found patient was placed on heparin. She had been on Xarelto as an outpatient prior to admission. Not been taking her medications the last 2 days secondary to the dehydration. Pericardial effusion found on CT scan of the abdomen, confirmed on echocardiogram, complicating the above. Thrombocytopenia-monitor daily Acute kidney injury secondary to the above-monitor daily Possible sepsis with septic shock-placed on Levophed and fluid bolus, IV antibiotics, cultures pending.
[2022-11-29 08:17] LABS: Troponin I High Sensitivity 67.2 pg/mL (4.0-51.3)
[2022-11-29 08:22] LABS: Glucometer 252 mg/dL (74-106)
--- NOTE | 2022-11-29 08:45 | CT_ITS ---
The [address] [address] Patient Name: PRICILA GURROLA MRN: [id number] date: 1955 Sex: F Assigned Patient Location: MS Current Patient Location: ICU Accession/Order Number: [id number] Exam Date: 11/29/2022 08:30 Report Date: 11/29/2022 09:27 At the request of: ABDIRAHMAN MARTINEZ Procedure: CT angio chest EXAMINATION: CT angio chest, 11/29/2022 8:30 AM EDT HISTORY: hypoxia COMPARISON: CT angiogram of the chest from 09/02/2022 TECHNIQUE: CT angiography of the chest was performed with water soluble IV contrast. MIP (maximum intensity projection) images or 3D post processing was performed. CT dose reduction technique was used, including Automated Exposure Control. FINDINGS: The heart remains enlarged, with enlargement of the right atrium and ventricle and flattening of the ventricular septum. There is persistent dilatation of the main pulmonary artery segment at 3.3 cm, not significantly changed. Moderate pericardial effusion is again noted, slightly increased. The thoracic aorta is normal in caliber. There is persistent eccentric nonocclusive thrombus in the right pulmonary artery segment, which appears slightly decreased. However, there is now occlusive thrombus in the distal branches to the right posterior basal and lateral basilar segments. There has been interval decrease in mild nonocclusive thrombus in the left lower lobe pulmonary artery branches. There has been interval increase in bilateral pleural effusions and bibasilar atelectasis. Micronodular infiltrates are again seen in both upper lobes, right greater than left, not significantly changed. 2 cm aorticopulmonary window node appears unchanged. A large amount of fluid is now seen within distended esophagus suggestive of reflux. The osseous structures appear intact. The visualized portions of the upper abdomen appear unremarkable. CT/CT angio chest IMPRESSION: There has been mild interval decrease in nonocclusive thrombus in the right main pulmonary artery segment, with apparent progression to occlusive thrombus now seen in the right posterior basal and lateral basal pulmonary artery segments. There has also been slight decrease and nonocclusive thrombus in the distal left lower lobe pulmonary artery branches. There is persistent cardiomegaly with enlargement of the right ventricle and right atrium and dilatation of the main pulmonary artery segment which can be seen with pulmonary hypertension. There has been slight increase in moderate pericardial effusion. Interval increase in bilateral pleural effusions and bibasilar atelectasis. Persistent micronodular infiltrates in the upper lobes. A large amount of fluid is now seen in the distended esophagus suggestive of reflux. Electronically authenticated by: VIRIGNIA SOLOMON Date: 11/29/2022 09:27
[2022-11-29 09:02] LABS: Basophils Percent Auto 0.5 % (0.2-2.0); Hematocrit 40.3 % (36.0-48.0); Hemoglobin 13.3 g/dL (12.0-16.0); Immature Granulocytes Abs Auto 0.04 10^3/uL (0.00-0.03); Immature Granulocytes Pct Auto 0.7 % (0.0-0.5); Lymphocytes Absolute Auto 0.5 10^3/uL (1.2-3.8); Lymphocytes Percent Auto 8.6 % (20.5-60.0); Mean Corpuscular Hemoglobin 25.6 pg (26.7-34.0); Mean Corpuscular Volume 77.5 fL (81.0-99.0); Monocytes Absolute Auto 0.5 10^3/uL (0.3-0.8); Monocytes Percent Auto 8.6 % (1.7-12.0); Neutrophils Absolute Auto 4.9 10^3/uL (1.4-6.5); Neutrophils Percent Auto 81.6 % (43.0-75.0); Platelet Count 117 10^3/uL (150-450); Red Cell Distribution Width 21.8 % (11.0-15.0); White Blood Count 5.9 10^3/uL (4.0-11.0)
--- NOTE | 2022-11-29 09:14 | PC.NURSE ---
Waybill Clerk observed patient pale upon entering the room. Patient was in and out of sleep. POX was 74% oxygen placed on patient at 2 L. POX increased to 8%. Waybill Clerk increased O2 obtained simple mask. Glucose was 252. Notified Doctor and Respiratory. Patients 02 increased to 88% on 5L simple mask. Patient became more alert. Waybill Clerk was unable to obtain BP. Pulse was strong and Tachy 114. ordered a stat CT and transfer to ICU. Clock And Watch Assembler Jovita was able to obtain BP 80/62. Waybill Clerk transported patient to CT. Waited until the scan was obtained then transferred patient to ICU. Patient was alert and oriented upon transfer. POX 2 L nasal cannula 90%.
[2022-11-29] MEDS: PANTOPRAZOLE SODIUM 40 MG VIAL IV (09:28)
[2022-11-29] MEDS: CLOPIDOGREL BISULFATE 75 MG TABLET PO (09:29)
[2022-11-29] MEDS: ASPIRIN 81 MG TAB.CHEW PO (09:29)
[2022-11-29] MEDS: CIPROFLOXACIN IN 5 % DEXTROSE 400 MG/200 ML PIGGYBACK 200 MG IV (09:29)
[2022-11-29] MEDS: HYDROXYCHLOROQUINE SULFATE 200 MG TABLET PO (09:29)
[2022-11-29] MEDS: ATORVASTATIN CALCIUM 10 MG TABLET PO (09:29)
[2022-11-29] MEDS: POTASSIUM CHLORIDE 10 MEQ ER TABLET 20 MEQ PO (09:29)
[2022-11-29] MEDS: FAMOTIDINE/PF 20 MG/2 ML VIAL IV (09:30)
[2022-11-29 09:47] LABS: Anion Gap 20.3; BUN Creatinine Ratio 16.9; Carbon Dioxide 22.1 mmol/L (21.0-32.0); Chloride 96 mmol/L (98-107); Estimated GFR (African America 33 (>=60); Estimated GFR (Non-African Ame 27 (>=60); Potassium 3.4 mmol/L (3.5-5.1); Sodium 135 mmol/L (136-145)
[2022-11-29 09:56] LABS: Glucose 48 mg/dL (74-106)
[2022-11-29] MEDS: PROMETHAZINE HCL 25 MG/ML VIAL 12.5 MG IV (10:04)
[2022-11-29] MEDS: DEXTROSE 50 %-WATER 25 GM/50 ML SYRINGE IV (10:04)
[2022-11-29] MEDS: 0.9 % SODIUM CHLORIDE 1,000 ML 1000 ML IV (10:20)
[2022-11-29] MEDS: NOREPINEPHRINE BITARTRATE 4 MG in DEXTROSE 5 % IN WATER 250 ML 38.1 MG IV (10:26)
[2022-11-29 10:38] LABS: Glucometer 158 mg/dL (74-106)
[2022-11-29 10:39] LABS: Lactate/Lactic Acid 2.5 mmol/L (0.4-2.0)
[2022-11-29] MEDS: HEPARIN SODIUM (PORCINE) 5,000 UNIT/ML VIAL 8000 UNIT IV (11:07)
[2022-11-29] MEDS: HEPARIN SODIUM,PORCINE/D5W 25,000 UNIT/500 ML IV.SOLN 34.884 UNIT IV (11:07)
[2022-11-29] MEDS: IPRATROPIUM/ALBUTEROL SULFATE 3 ML AMPUL.NEB IH (11:15)
--- NOTE | 2022-11-29 12:08 | CM.NOTE ---
Pt has had a decline in condition and will be transferred to [facility]. Pt will not be given Medicare Form d/t transfer to higher level of care.
[2022-11-29 12:18] LABS: Anion Gap 16.6; BUN Creatinine Ratio 17.9; Calcium 7.8 mg/dL (8.5-10.1); Carbon Dioxide 24.5 mmol/L (21.0-32.0); Chloride 96 mmol/L (98-107); Estimated GFR (African America 34 (>=60); Estimated GFR (Non-African Ame 28 (>=60); Glucose 104 mg/dL (74-106); Potassium 3.1 mmol/L (3.5-5.1); Sodium 134 mmol/L (136-145)
--- NOTE | 2022-11-29 12:51 | SWNOTE1 ---
Pt is being transferred.
--- NOTE | 2022-11-29 14:26 | RESP.RT ---
diminished greater throughout the right lung
== END 2022-11-29 13:19 | disposition short-term general hospital (02) | DRG 175 ==
LOC: ER 19:05 → MS 19:42 → ICU 11-29 09:08
PROVIDERS: Emergency Medicine; Admitting Provider Internal Medicine; Emergency Provider Emergency Medicine; PCP Family Medicine; Visit Provider Family Medicine
DX: I26.99 Other pulmonary embolism without acute cor pulmonale (principal); A41.9 Sepsis, unspecified organism; J96.01 Acute respiratory failure with hypoxia; R65.21 Severe sepsis with septic shock; N39.0 Urinary tract infection, site not specified; I31.39 Other pericardial effusion (noninflammatory); N17.9 Acute kidney failure, unspecified; E83.42 Hypomagnesemia; R11.2 Nausea with vomiting, unspecified; R19.7 Diarrhea, unspecified; D69.6 Thrombocytopenia, unspecified; E87.6 Hypokalemia; E86.0 Dehydration; I11.0 Hypertensive heart disease with heart failure; I50.9 Heart failure, unspecified; J44.9 Chronic obstructive pulmonary disease, unspecified; I25.10 Atherosclerotic heart disease of native coronary artery without angina pectoris; K21.9 Gastro-esophageal reflux disease without esophagitis; M19.90 Unspecified osteoarthritis, unspecified site; I73.00 Raynaud's syndrome without gangrene; M34.9 Systemic sclerosis, unspecified; Z79.82 Long term (current) use of aspirin; Z79.02 Long term (current) use of antithrombotics/antiplatelets; Z79.899 Other long term (current) drug therapy; Z83.6 Family history of other diseases of the respiratory system; Z83.3 Family history of diabetes mellitus; Z82.49 Family history of ischemic heart disease and other diseases of the circulatory system
CPT/HCPCS: 36415; 71275; 74176; 80048; 81001; 82150; 82805; 82948; 83605; 83690; 83735; 83880; 84443; 84484; 85025; 85610; 85730; 87040; 87086; 93005; 93308; 94640; 94761; 96361; 96365; 96366; 96367; 96368; 96375; 96376; 99285; G0378; J3480; Q3014; Q9966